=== PATIENT | male | born 1990 | race Caucasian/White ===

== ENCOUNTER 2017-10-16 02:36 | Inpatient (IN) | payer MEDICAID ==
[2017-10-16] VITALS (10 sets, daily range): BP systolic 56–98; BP diastolic 32–55
[~2017-10-16] VITALS: Ht 188 cm; Wt 67.6 kg
[2017-10-16 03:28] LABS: RED CELL DISTRIBUTION WIDTH 13.1 % (11.5-14.5)
[2017-10-16 03:30] LABS: BASOPHIL % 0 % (0-2); PLATELET COUNT 117 x10^3mcL (130-400)
[2017-10-16 03:52] LABS: ALKALINE PHOSPHATASE 121 U/L (46-116); ALT/SGPT 43 U/L (16-63); AST/SGOT 29 U/L (15-37); BILIRUBIN TOTAL 1.1 mg/dL (0.20-1.00); CARBON DIOXIDE 28.2 mmol/L (21-32); CHLORIDE SERUM 89 mmol/L (98-107); CREATININE SERUM 0.9 mg/dL (0.7-1.3); GFR1 > 60 mL/min; GLUCOSE SERUM 117 mg/dL (74-106); POTASSIUM SERUM 3.7 mmol/L (3.5-5.1); TOTAL PROTEIN, SERUM 6.7 g/dL (6.4-8.2)
[2017-10-16 03:54] LABS: ALBUMIN 2.1 g/dL (3.4-5.0); CK-MB 0.8 ng/mL (0-3.6)
[2017-10-16 03:57] LABS: SODIUM SERUM 124 mmol/L (136-145)
[2017-10-16] MEDS ORDERED: ZOLOFT25 MG PO (05:27)
[2017-10-16] MEDS ORDERED: KEPPRA500 MG PO (05:27)
[2017-10-16 05:45] LABS: microscopic required? YES; urine erythrocyte NEGATIVE (NEGATIVE)
[2017-10-16 06:36] LABS: CHOLESTEROL/HDL RATIO 8.4; MAGNESIUM 1.6 mg/dL (1.8-2.4); PHOSPHOROUS 2.9 mg/dL (2.5-4.9)
[2017-10-16 06:36] LABS: AMPHETAMINE QUAL UR NONE DETECTED (NEG <=1000)
[2017-10-16 06:49] LABS: FREE T4 1.91 ng/dL (0.76-1.46); FREE THYROXINE INDEX 3.7 ug/dL (1.4-4.5); T4(THYROXINE) 9.7 ug/dL (4.7-13.3)
[2017-10-16 06:54] LABS: T3 TOTAL 0.65 ng/mL
[2017-10-16 14:56] LABS: CALCIUM 7.2 mg/dL (8.5-10.1); CARBON DIOXIDE 22.7 mmol/L (21-32); CHLORIDE SERUM 100 mmol/L (98-107); CREATININE SERUM 0.7 mg/dL (0.7-1.3); GFR1 > 60 mL/min; GLUCOSE SERUM 101 mg/dL (74-106); POTASSIUM SERUM 3.6 mmol/L (3.5-5.1); SODIUM SERUM 131 mmol/L (136-145)
[2017-10-16 19:32] LABS: IRON 12 ug/dL (65-170); TOTAL IRON BINDING CAPACITY 106 ug/dL (250-450)
[2017-10-16 19:45] LABS: RED BLOOD CELLS 2.96 M/mm3 (4.52-5.90)
[2017-10-17] VITALS (15 sets, daily range): BP systolic 82–126; BP diastolic 30–106; Ht 188 cm; Wt 67.6 kg
[2017-10-17 05:25] LABS: PLATELET COUNT 130 x10^3mcL (130-400); RED CELL DISTRIBUTION WIDTH 13.8 % (11.5-14.5)
[2017-10-17 05:45] LABS: CALCIUM 7.3 mg/dL (8.5-10.1); CARBON DIOXIDE 19.2 mmol/L (21-32); CHLORIDE SERUM 100 mmol/L (98-107); CREATININE SERUM 0.9 mg/dL (0.7-1.3); GFR1 > 60 mL/min; GLUCOSE SERUM 141 mg/dL (74-106); MAGNESIUM 1.8 mg/dL (1.8-2.4); SODIUM SERUM 129 mmol/L (136-145)
[2017-10-17 05:49] LABS: ATYPICAL LYMPH 1 %; BAND NEUTROPHIL 10 % (0-10); METAMYELOCTE 3 % (0-2); MONOCYTE 9 % (0-7); SEGMENTED NEUTROPHILS 73 % (37-75)
[2017-10-17 05:53] LABS: PLATELET MORPHOLOGY LARGE PLATELET SEEN; rbc morphology (normal/abnorm) ABNORMAL (NORMAL)
[2017-10-18] VITALS (18 sets, daily range): BP systolic 100–128; BP diastolic 38–58
[2017-10-18 04:57] LABS: PLATELET COUNT 189 x10^3mcL (130-400)
[2017-10-18 05:11] LABS: CALCIUM 6.9 mg/dL (8.5-10.1); CARBON DIOXIDE 21.3 mmol/L (21-32); CHLORIDE SERUM 102 mmol/L (98-107); CREATININE SERUM 0.7 mg/dL (0.7-1.3); GFR1 > 60 mL/min; GLUCOSE SERUM 132 mg/dL (74-106); MAGNESIUM 1.8 mg/dL (1.8-2.4); PHOSPHOROUS 3.3 mg/dL (2.5-4.9); POTASSIUM SERUM 4.1 mmol/L (3.5-5.1); SODIUM SERUM 132 mmol/L (136-145)
[2017-10-18 05:24] LABS: ATYPICAL LYMPH 1 %; BAND NEUTROPHIL 8 % (0-10); METAMYELOCTE 5 % (0-2); MONOCYTE 6 % (0-7); PLATELET MORPHOLOGY LARGE PLATELET SEEN; SEGMENTED NEUTROPHILS 66 % (37-75); rbc morphology (normal/abnorm) ABNORMAL (NORMAL)
[2017-10-19] VITALS (16 sets, daily range): BP systolic 91–109; BP diastolic 38–56
[2017-10-19 06:14] LABS: BASOPHIL % 0.5 % (0-2); PLATELET COUNT 249 x10^3mcL (130-400); RED CELL DISTRIBUTION WIDTH 13.7 % (11.5-14.5)
[2017-10-19 06:15] LABS: CALCIUM 7.2 mg/dL (8.5-10.1); CARBON DIOXIDE 26.9 mmol/L (21-32); CHLORIDE SERUM 100 mmol/L (98-107); CREATININE SERUM 0.7 mg/dL (0.7-1.3); GFR1 > 60 mL/min; GLUCOSE SERUM 118 mg/dL (74-106); MAGNESIUM 1.7 mg/dL (1.8-2.4); PHOSPHOROUS 2.9 mg/dL (2.5-4.9); POTASSIUM SERUM 3.6 mmol/L (3.5-5.1); SODIUM SERUM 131 mmol/L (136-145)
[2017-10-19 06:18] LABS: ALBUMIN 1.3 g/dL (3.4-5.0)
[2017-10-20] VITALS (8 sets, daily range): BP systolic 89–109; BP diastolic 39–71
[2017-10-20 05:55] LABS: PLATELET COUNT 261 x10^3mcL (130-400); RED CELL DISTRIBUTION WIDTH 13.5 % (11.5-14.5)
[2017-10-20 06:13] LABS: CALCIUM 7.8 mg/dL (8.5-10.1); CARBON DIOXIDE 29.1 mmol/L (21-32); CHLORIDE SERUM 99 mmol/L (98-107); CREATININE SERUM 0.6 mg/dL (0.7-1.3); GFR1 > 60 mL/min; GLUCOSE SERUM 100 mg/dL (74-106); MAGNESIUM 1.7 mg/dL (1.8-2.4); PHOSPHOROUS 3.8 mg/dL (2.5-4.9); POTASSIUM SERUM 4.2 mmol/L (3.5-5.1); SODIUM SERUM 133 mmol/L (136-145)
[2017-10-20 09:39] LABS: BAND NEUTROPHIL 1 % (0-10); BASOPHIL 0 % (0-2); MONOCYTE 4 % (0-7); SEGMENTED NEUTROPHILS 89 % (37-75)
[2017-10-20 09:41] LABS: PLATELET MORPHOLOGY PLATELETS NORMAL; rbc morphology (normal/abnorm) ABNORMAL (NORMAL)
[2017-10-20] MEDS ORDERED: VAN1I IV (16:27)
[2017-10-20] MEDS ORDERED: BD LACTINEX1.4 MG PO (16:28)
[2017-10-20] MEDS ORDERED: NOREPINEPH IV (16:46)
== END 2017-10-20 21:15 | disposition short-term general hospital (02) | DRG 720 ==
LOC: ED 02:36 → DU 05:27 → IC 17:04
PROVIDERS: Emergency Medicine Emergency Medical Services; Family Medicine; ADMIT Family Medicine
PROC: 5A1945Z Respiratory Ventilation, 24-96 Consecutive Hours (ICD-10-PCS; principal; 2017-10-17)
PROC: 0BH17EZ Insertion of Endotracheal Airway into Trachea, Via Natural or Artificial Opening (ICD-10-PCS; 2017-10-17)
PROC: 05HM33Z Insertion of Infusion Device into Right Internal Jugular Vein, Percutaneous Approach (ICD-10-PCS; 2017-10-17)
PROC: B543ZZA Ultrasonography of Right Jugular Veins, Guidance (ICD-10-PCS; 2017-10-17)
DX: A41.9 Sepsis, unspecified organism (principal); J96.00 Acute respiratory failure, unspecified whether with hypoxia or hypercapnia; N17.0 Acute kidney failure with tubular necrosis; I21.A1 Myocardial infarction type 2; R65.21 Severe sepsis with septic shock; E43 Unspecified severe protein-calorie malnutrition; E83.42 Hypomagnesemia; I08.2 Rheumatic disorders of both aortic and tricuspid valves; J18.9 Pneumonia, unspecified organism; E86.0 Dehydration; L03.312 Cellulitis of back [any part except buttock and flank]; L03.313 Cellulitis of chest wall; E87.1 Hypo-osmolality and hyponatremia; Z68.1 Body mass index [BMI] 19.9 or less, adult; G40.909 Epilepsy, unspecified, not intractable, without status epilepticus; F32.9 Major depressive disorder, single episode, unspecified; F12.10 Cannabis abuse, uncomplicated; F11.10 Opioid abuse, uncomplicated; F17.210 Nicotine dependence, cigarettes, uncomplicated; Z91.19 Patient's noncompliance with other medical treatment and regimen; B18.2 Chronic viral hepatitis C; D64.9 Anemia, unspecified; E83.51 Hypocalcemia; E83.39 Other disorders of phosphorus metabolism; M62.50 Muscle wasting and atrophy, not elsewhere classified, unspecified site; R80.9 Proteinuria, unspecified
CPT/HCPCS: 36556; 36600; 82962; 83880; 84439; A4628; C9113; G0480; J0282; J0290; J0330; J0696; J1642; J1644; J1885; J1940; J1956; J2250; J2270; J2704; J3010; J3370; J3475; J3490; J7030; J7040; J7620; Q0092